=== PATIENT | female | born 1975 | race Hispanic/Latino ===

== ENCOUNTER 2025-05-12 10:48 | Emergency (ER) | payer BC ==
[2025-05-12 12:03] LABS: #Basophils 0.08 10x3/uL (0.0-0.2); #Eosinophils 0.03 10x3/uL (0.0-0.5); #Monocytes 0.61 10x3/uL (0.0-1.1); #Neutrophils 5.14 10x3/uL (1.5-8.4); %Basophils 1.0 % (0.0-2.0); %Eosinophils 0.4 % (0.0-6.0); %Lymphocytes 22.9 % (18.0-47.0); %Monocytes 8.0 % (0.0-10.0); %Neutrophils 67.4 % (40.0-75.0); Hematocrit 40.3 % (34.9-44.5); Hemoglobin 13.6 g/dL (12.0-15.5); Mean Corpuscular Hemoglobin 28.9 pg (27.0-33.0); Mean Corpuscular Volume 85.7 fL (81.6-98.3); Platelet Count 300 10x3/uL (150-450); Red Blood Cell (RBC) Count 4.70 10x6/uL (3.90-5.03); White Blood Cell (WBC) Count 7.63 10x3/uL (3.5-10.5)
[2025-05-12 12:12] LABS: INR-International Normal Ratio 1.0; PTT 26.2 sec (22.0-33.0); Prothrombin Time 10.7 sec (9.5-12.1)
[2025-05-12 12:32] LABS: Troponin I Less than 0.010 ng/mL (< 0.028)
[2025-05-12 13:04] LABS: ALT (SGPT) 25 U/L (Less than 34); AST (SGOT) 19 U/L (11-34); Albumin 4.1 g/dL (3.1-4.5); Alkaline Phosphatase 68 U/L (40-110); Anion Gap 15 mmol/L (10-20); BUN (Urea Nitrogen) 18 mg/dL (9.8-20.1); Bilirubin, Total 0.6 mg/dL (0.3-1.2); CK (CPK) 62 U/L (29-168); Calc. Creatinine Clearance 0 mL/min (70-130); Calcium 9.4 mg/dL (7.8-10.44); Carbon Dioxide 21 mmol/L (22-29); Chloride 107 mmol/L (98-107); Globulin 3.7 g/dL (2.4-3.5); Glucose 101 mg/dL (70-105); Potassium 3.5 mmol/L (3.5-5.1); Sodium 139 mmol/L (136-145)
== END 2025-05-12 15:55 | disposition home or self-care (01) ==
LOC: CSHERS 10:48
DX: R13.10 Dysphagia, unspecified (principal)
CPT/HCPCS: 70491; 71260; 74178; 80053; 82550; 83690; 84484; 85025; 85610; 85730; 93005